=== PATIENT | male | born 1960 | race Caucasian/White ===

== ENCOUNTER 2022-11-24 08:57 | Outpatient (CLI) | payer OTHER ==
[~2022-11-24] VITALS: Ht 180.3 cm; Wt 103.0 kg
[~2022-11-24 08:57] MED LIST: DAPS25TA2 PO; LISI10TA PO; LORA5TAB9 PO; SULF1TAB38 PO; TERB250T
[2022-11-24] MEDS ORDERED: ATOR20TA66 PO (10:58)
[2022-11-24] MEDS ORDERED: OMEP20TA33 PO (10:58)
[2022-11-24] MEDS ORDERED: LISI20TA26 PO (10:58)
== END 2022-11-24 10:59 ==
LOC: PREOP 08:57
PROVIDERS: ATTEND Internal Medicine
DX: Z01.818 Encounter for other preprocedural examination (principal)

== ENCOUNTER 2022-12-03 07:47 | Day surgery (SDC) | payer BC, OTHER ==
--- NOTE | 2022-11-24 07:08 | HISTORY AND PHYSICAL ---
DATE OF SERVICE: 12/03/2022 COLONOSCOPY HISTORY AND PHYSICAL REFERRING PROVIDER: Tawanna Pulido, Nurse Practitioner, [place], [place]. HISTORY OF PRESENT ILLNESS: The patient is a 62-year-old white male referred for a second screening colonoscopy. He reports that at the age of 51, he had his first. He does not believe that he had any polyps or abnormalities at that time. He may be slightly higher than average risk as his mother did have a large colon polyp removed. It required surgery. Initially, it was thought possibly malignant, but after removal apparently was not. This is at the age of 82. He is not aware of any other family history for any colon problems. He denies abdominal pain, change in bowel habit, melena or bright red blood per rectum. PAST MEDICAL HISTORY: Significant for hyperlipidemia and hypertension as well as reflux symptoms that are well controlled on Prilosec 20 mg daily. MEDICATIONS: Other medications include lisinopril 20 mg daily and atorvastatin 20 mg daily. PAST SURGICAL HISTORY: He had left rib fractures that actually required open reduction internal fixation following a horseback riding accident. He also had left AC separation repair at that time. He has had no abdominal surgery. 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 REVIEW OF SYSTEMS: CONSTITUTIONAL: Denies night sweats, chills, fever, change in weight. PULMONARY: Denies cough, wheezing or shortness of breath. GASTROINTESTINAL: As noted in the HPI. CARDIOVASCULAR: Denies chest pain, orthopnea, PND, pedal edema or syncope. PHYSICAL EXAMINATION: GENERAL: Reveals a white male who appeared to be in no acute distress. VITAL SIGNS: Weight 227 pounds, blood pressure 146/89. HEENT: Unremarkable. CHEST: Clear to auscultation. CARDIOVASCULAR: Reveals a regular rate and rhythm without murmur, S3, or S4. ABDOMEN: Soft, supple without mass, organomegaly, or tenderness. EXTREMITIES: Reveal no cyanosis, clubbing or edema. ASSESSMENT AND PLAN: The patient is being set up for his second screening colonoscopy. Prep instructions, I believe with Plenvu were given. Questions were answered. I thank you for the referral of this pleasant gentleman. Job ID: [id number] DocumentID: [id number] Dictated Date: 11/17/2022 16:14:06 Community Service Aide Date: 11/17/2022 16:56:00 Dictated By: DINORAH SORTO MD
[2022-12-03] VITALS (7 sets, daily range): BP systolic 113–139; BP diastolic 66–90
[~2022-12-03] VITALS: Ht 180.3 cm; Wt 103.0 kg
[~2022-12-03 07:47] MED LIST changes: +ATOR20TA66 PO; +LISI20TA26 PO; +OMEP20TA33 PO
[2022-12-03] MEDS ORDERED: LACTATED RINGERS 1,000 ML IV STA (07:49)
--- NOTE | 2022-12-03 07:52 | Pre-Op Note & Conscious Sedat ---
Pre-Operative Progress Note Date H&P Reviewed: Dec 03, 2022 Time H&P Reviewed: 07:52 History & Physical: H&P Reviewed, Patient Examed, No changes noted Pre-Op Diagnosis: screening Conscious Sedation Pre-Proced ASA Score 2 For ASA 3 and 4: Consider anesthesia and medical clearance. Also, for patients with a history of failed moderate sedation consider anesthesia. Airway Lungs Heart ASA score ASA 1: a normal healthy patient ASA 2: a patient with a mild systemic disease (mid diabetes, controlled hypertension, obesity ASA 3: a patient with a severe systemic disease that limits activity (angina, COPD, prior Myocardial infarction) ASA 4: a patient with an incapacitating disease that is a constant threat to life (CHF, renal failure) ASA 5: a moribund patient not expected to survive 24 hrs. (ruptured aneurysm) ASA 6: a declared brain- patient whose organs are being harvested. For emergent operations, add the letter E after the classification Mallampati Classification Grade 2 Sedation Plan Analgesia, Amnesia, Plan communicated to team members, Discussed options with patient/fam, Discussed risks with patient/fam The patient is an appropriate candidate to undergo the planned procedure, sedation, and anesthesia. The patient immediately re-assessed prior to indication. DINORAH SORTO MD Dec 03, 2022 07:52
--- NOTE | 2022-12-03 09:05 | Progress Note-Post Operative ---
Post-Procedure Note Physician (s)/Press Operator Automatic (s) Physician DINORAH SORTO MD Pre-Procedure Diagnosis Pre-Procedure Diagnosis: screening Post-Procedure Diagnosis Post-operative diagnosis: Prior to undergoing colonoscopy digital rectal evaluation was performed. Anal sphincter tone was normal and the perianal reflexes intact. The prostate is mild to moderately enlarged and a nodular. No other abnormalities noted on digital inspection anal canal or distal rectal vault. The colonoscope was then inserted into the rectum and under direct visualization advanced to the cecum. The cecum was identified by indication of the ileocecal valve and the cecal strap. Photographic documentation was obtained. A careful inspection was made as the colonoscope was withdrawn. Quality of the prep was good. Findings: There were no evidence for internal/external hemorrhoids. The rectum was unremarkable. Mild diverticular disease confined to the sigmoid and descending colon were noted without evidence for diverticulitis. No other abnormalities noted in these locations. The splenic flexure transverse colon and hepatic flexure unremarkable. 1 sessile 5 mm polyp was noted in the proximal ascending colon that was biopsied and ablated with no subsequent blood loss with hot forceps. The cecum of the colon was unremarkable. A/P 1. Digital evaluation the prostate is compatible with mild to moderate BPH. No nodularity was noted. 2. 1 5 mm polyp was removed via hot forceps from the proximal ascending colon. As long as there are no surprises on histopathology report would advocate consideration for repeat screening colonoscopy in 10 years. Mild diverticular disease confined to the sigmoid and descending colon were noted without evidence for diverticulitis. CC: DINORAH Rodriguez APRN, MD Dec 03, 2022 09:05
--- NOTE | 2022-12-03 14:22 | Anesthesia-General Post-Op ---
MAC Patient Condition Mental Status/LOC: Same as Preop Cardiovascular: Satisfactory Nausea/Vomiting: Absent Respiratory: Satisfactory Pain: Controlled Complications: Absent Post Op Complications Complications None Follow Up Care/Instructions Patient Instructions None needed. Anesthesiology Discharge Order Discharge Order Patient is doing well, no complaints, stable vital signs, no apparent adverse anesthesia problems. No complications reported per nursing. MOHIT RAZO CRNA Dec 03, 2022 14:22
== END 2022-12-03 10:15 | disposition home or self-care (01) ==
LOC: ENDO 07:47
PROVIDERS: ATTEND Internal Medicine
DX: Z12.11 Encounter for screening for malignant neoplasm of colon (principal); K63.5 Polyp of colon; K57.30 Diverticulosis of large intestine without perforation or abscess without bleeding; N40.0 Benign prostatic hyperplasia without lower urinary tract symptoms; K21.9 Gastro-esophageal reflux disease without esophagitis; Z79.899 Other long term (current) drug therapy